=== PATIENT | male | born 1960 | race Caucasian/White ===

== ENCOUNTER 2019-06-27 15:07 | Emergency (ER) | payer OTHER ==
[~2019-06-27] VITALS: Ht 172.7 cm; Wt 87.3 kg
[2019-06-27 15:09] VITALS: Ht 172.7 cm; Wt 87.3 kg
[2019-06-27] MEDS ORDERED: LIPITOR80 MG PO (15:41)
[2019-06-27] MEDS ORDERED: CYMBALTA30 MG PO (15:42)
[2019-06-27] MEDS ORDERED: MULTI-DAY VITAM1 TAB PO (15:43)
[2019-06-27] MEDS ORDERED: MOBIC7.5 MG PO (15:43)
[2019-06-27] MEDS ORDERED: OMEPRAZOLE20 M1 PO (15:43)
[2019-06-27] MEDS ORDERED: BENADRYL25 MG PO (15:44)
[2019-06-27 16:11] LABS: APTT 25.7 SECONDS (22.8-39.4); CALC OSMOLALITY 281 mosm/kg (275-300); CARBON DIOXIDE 29.3 mmol/L (21.0-32.0); CHLORIDE - SERUM 105 mmol/L (98-107); CREATININE - SERUM 0.8 mg/dL (0.6-1.3); GLUCOSE 99 mg/dL (74-106); INR 0.95 (0.85-1.17); POTASSIUM - SERUM 3.7 mmol/L (3.5-5.1); PROTIME 12.6 SECONDS (11.6-15.0); SODIUM 142 mmol/L (136-145); UREA NITROGEN 9 mg/dL (7-18); eGFR NON AFRICAN AMERICAN > 90 mL/min (90-120)
[2019-06-27 16:13] LABS: HEMATOCRIT 44.2 % (42.0-54.0); HEMOGLOBIN 15.2 g/dL (13.5-17.5); MCHC 34.4 g/dL (31.0-37.0); MCV 101.8 fL (80.0-100.0); MEAN PLATELET VOLUME 9.8 fL (7.4-10.4); PLATELET COUNT 283 10x3/uL (130-400); RBC 4.34 10x6/uL (4.20-6.10); RDW 12.6 % (11.5-14.5); WBC 8.4 10x3/uL (4.8-10.8)
[2019-06-27 16:27] LABS: ALBUMIN 3.9 g/dL (3.4-5.0); ALKALINE PHOSPHATASE 86 U/L (30-120); ALT (SGPT) 21 U/L (10-68); BILIRUBIN - TOTAL 0.42 mg/dL (0.2-1.3); CKMB 2.1 U/L (0.0-3.6); CREATINE KINASE 178 UL (21-232); MAGNESIUM - SERUM 2.2 mg/dL (1.8-2.4); PROTEIN - SERUM 7.2 g/dL (6.4-8.2); TROPONIN-I < 0.017 ng/mL (0.000-0.060)
[2019-06-27 17:12] LABS: EOSINOPHILS 5 % (0-7); LYMPHOCYTES 59 % (15-50); MONOCYTES 3 % (2-11); NEUTROPHILS 33 % (40-80); PLATELET ESTIMATE NORMAL
[2019-06-27] MEDS ORDERED: PROTONIX40 MG PO (20:00)
[2019-06-27 20:09] VITALS: BP 135/64
== END 2019-06-27 20:09 | disposition home or self-care (01) ==
LOC: D.ER 15:07
PROVIDERS: Family Medicine
DX: K21.0 Gastro-esophageal reflux disease with esophagitis (principal); E78.5 Hyperlipidemia, unspecified